=== PATIENT | male | born 1985 | race Two or more races ===

== ENCOUNTER 2017-07-09 06:16 | Inpatient (IN) | payer OTHER ==
[~2017-07-09] VITALS: Ht 170.2 cm; Wt 122.5 kg
[2017-07-09] VITALS (12 sets, daily range): BP systolic 108–144; BP diastolic 60–85
[~2017-07-09 06:16] MED LIST: METFORMIN HCL1000 M1 ORAL; ceFAZolin 2gm/50ml Premix 50 ML IV SCH
[2017-07-09] MEDS ORDERED: Thrombin 5000 units TOPIC ONE (08:40)
[2017-07-09] MEDS ORDERED: Gelfoam Absorbable 1gm powder pkt TOPIC ONE (08:41)
[2017-07-09] MEDS ORDERED: Thrombin 5000 units spray kit TOPIC ONE (08:41)
[2017-07-09] MEDS ORDERED: Bupivacaine w/Epi 0.5% 30ml Vial INJ ONE (08:41)
[2017-07-09] MEDS ORDERED: Bacitracin 50000 Units Vial ONE (08:41)
[2017-07-09] MEDS ORDERED: Propofol 10mg/ml 100ml btl IV ONE (09:00)
[2017-07-09] MEDS ORDERED: Midazolam 2mg/2ml Inj ONE (10:00)
[2017-07-09] MEDS ORDERED: Sterile Water Irrig 1000ml IRRIG ONE (10:00)
[2017-07-09] MEDS ORDERED: Neostigmine 1mg/ml 10ml Inj ONE (10:00)
[2017-07-09] MEDS ORDERED: fentaNYL 100 mcg/2 mL IV ONE (10:00)
[2017-07-09] MEDS ORDERED: Succinylcholine 20mg/ml 10ml vial ONE (10:00)
[2017-07-09] MEDS ORDERED: NS Irrig 1000ml ONE (10:00)
[2017-07-09] MEDS ORDERED: LR 1000ml ONE (10:00)
--- NOTE | 2017-07-09 10:30 | Pre-Procedure Note/Attestation ---
Pre-Procedure Note/Attestation Complete Prior to Procedure Procedure Narrative: L45 Laminectomy and microdiscectomy Indications for Procedure Pre-Operative Diagnosis: L45 stenosis hnp Attestation I attest that I discussed the nature of the procedure; its benefits; risks and complications; and alternatives (and the risks and benefits of such alternatives ), prior to the procedure, with the patient (or the patient's legal international sales representative). I attest that, if there was a reasonable possibility of needing a blood transfusion, the patient (or the patient's legal international sales representative) was given the [facility] standardized written summary, pursuant to the [place] Blood Safety Act ([place] Health and Safety Code # 1645, as amended). I attest that I re-evaluated the patient just prior to the surgery and that there has been no change in the patient's H&P, except as documented below: DELBERT MERCER Jul 09, 2017 10:30
--- NOTE | 2017-07-09 11:41 | Anethesia Preoperative Eval ---
Anesthesia Pre-op PMH/ROS General Date of Evaluation: Jul 09, 2017 Time of Evaluation: 09:57 Anesthesiologist: Bret ASA Score: ASA 2 Mallampati Score Class I : Soft palate, uvula, fauces, pillars visible Class II: Soft palate, uvula, fauces visible Class III: Soft palate, base of uvula visible Class IV: Only hard plate visible Mallampati Classification: Class II Anesthesia History: none Family History: no anesthesia problems Allergies: Coded Allergies: No Known Allergies (Unverified , 07/05/17) Medications: see eMAR Past Medical History Other: obesity, other PMH Narrative: sleep apnea Anesthesia Pre-op Phys. Exam Physician Exam Last Vital Signs Date Time Temp Pulse Resp B/P Pulse Ox O2 Delivery O2 Flow Rate FiO2 07/09/17 07:15 98.2 91 20 139/85 97 Room Air Constitutional: NAD Neurologic: CN 2-12 intact Cardiovascular: RRR Airway Exam Mallampati Score: Class II MO: full ROM: full Teeth: intact Anesthesia Pre-op A/P Risk Assessment & Plan Plan: GA Status Change Before Surgery: No Pre-Antibiotics Given Within 1 Hr of Incision: Yes Gerry Queen M.D. Jul 09, 2017 11:41
--- NOTE | 2017-07-09 11:43 | Immediate Post-Op Evaluation ---
Immediate Post-Op Evalulation Immediate Post-Op Evalulation Date of Evaluation: Jul 09, 2017 Time of Evaluation: 12:30 IV Fluids: 1300 Blood Products: 0 Estimated Blood Loss: 50 Urinary Output: 100 Blood Pressure Systolic: 125 Blood Pressure Diastolic: 83 Pulse Rate: 70 Respiratory Rate: 16 O2 Sat by Pulse Oximetry: 97 Temperature (Fahrenheit): 98 Pain Score (1-10): 0 Nausea: No Vomiting: No Patient Status: awake, reacts, patent, extubated Hydration Status: adequate Given Within 1 Hr of Incision: Yes Gerry Queen M.D. Jul 09, 2017 11:43
[2017-07-09] MEDS ORDERED: Norco 5mg/325mg tab ORAL PRN ×2 (11:45→12:30)
[2017-07-09] MEDS ORDERED: Meperidine 25mg/0.5ml Inj (FOR RIGORS ONLY) IV PRN (11:45)
[2017-07-09] MEDS ORDERED: Metoclopramide 10mg/2ml Inj IVP PRN ×2 (11:45→12:30)
[2017-07-09] MEDS ORDERED: Morphine Sulfate 2mg/ml Inj IVP PRN (11:45)
[2017-07-09] MEDS ORDERED: Midazolam 2mg/2ml Inj IVP PRN (11:45)
[2017-07-09] MEDS ORDERED: fentaNYL 100 mcg/2 mL IV PRN (11:45)
[2017-07-09] MEDS ORDERED: Ketorolac 30mg Inj IV PRN (11:45)
[2017-07-09] MEDS ORDERED: LORazepam Inj 2mg/ml 1ml IV PRN (11:45)
--- NOTE | 2017-07-09 11:45 | 48 Hour Post Anesthesia Eval ---
Post Anesthesia Evaluation Procedure: lumbar foraminotomy Date of Evaluation: Jul 11, 2017 Time of Evaluation: 08:00 Blood Pressure Systolic: 125 0: 78 Pulse Rate: 70 Respiratory Rate: 15 Temperature (Fahrenheit): 98 O2 Sat by Pulse Oximetry: 99 Airway: patent Nausea: No Vomiting: No Pain Intensity: 0 Hydration Status: adequate Mental Status/LOC: patient returned to baseline Follow-up care needed: patient intructions given Gerry Queen M.D. Jul 09, 2017 11:44
--- NOTE | 2017-07-09 12:26 | Brief Operative Note ---
Immediate Post Operative Note Operative Note Pre-op Diagnosis: L45 stenosis hnp Procedure: L45 R hemilaminectomy and microdiscectomy Post-op Diagnosis: same as pre-op Findings: consistent w/pre-op dx studies Surgeon: mendoza Anesthesiologist: thomas Anesthesia: general Specimen: none Complications: none Condition: stable Estimated Blood Loss: minimal Drains: hemovac Implant(s) used?: No DELBERT MERCER Jul 09, 2017 12:26
[2017-07-09] MEDS ORDERED: Milk of Magnesia 30ml Ud ORAL PRN (12:30)
[2017-07-09] MEDS ORDERED: Naloxone 0.4mg/ml Inj IVP PRN (12:30)
[2017-07-09] MEDS ORDERED: Norco 7.5mg/325mg tab ORAL PRN ×2 (12:30)
[2017-07-09] MEDS ORDERED: HYDROmorphone 1mg/ml Carpuject SUBQ PRN (12:30)
[2017-07-09] MEDS: Hydromorphone 0.5mg/0.5ml inj IVP PRN ×2 (13:02→13:37)
[2017-07-09] MEDS: D5 1/2NS 1,000 ML IV SCH (17:36)
[2017-07-09] MEDS: Pericolace tab ORAL SCH (17:39)
[2017-07-09] MEDS: Docusate 100mg cap ORAL SCH (17:39)
[2017-07-09] MEDS: ceFAZolin sod 1 GM in D5W 55 ML IV SCH (17:39)
[2017-07-09] MEDS ORDERED: Chloraseptic Spray 20mL Bottle ORAL PRN (20:00)
[2017-07-09] MEDS ORDERED: HYDROmorphone 1mg/ml Carpuject SUBQ ONE (20:15)
[2017-07-09] MEDS: Cyclobenzaprine 10mg Tab ORAL PRN (21:25)
[2017-07-09] MEDS: Dronabinol 2.5mg Cap ORAL SCH (21:25)
[2017-07-09] MEDS: NovoLOG Insulin Flexpen SUBQ SCH (21:27)
--- NOTE | 2017-07-10 | Operative Note - Dictated ---
DATE OF OPERATION: 07/09/2017 PREOPERATIVE DIAGNOSES: 1. Disk herniation, L4-L5 with right lower extremity radiculopathy. 2. Obesity. POSTOPERATIVE DIAGNOSES: 1. Disk herniation, L4-L5 with right lower extremity radiculopathy. 2. Obesity. PROCEDURE: 1. Hemilaminectomy and microdiskectomy, right side L4-L5 (made markedly more complicated due to the patient's obesity (BMI 43)). 2. Neurolysis L4-L5. 3. Use of operating microscope. 4. Neurodiagnostic monitoring. 5. Use of fluoroscopy for localization purposes. SURGEON: Luca Chavez M.D. DELIVERY MGR: None. Anesthesiologist: Gerry Queen M.D. _01:12 ANESTHESIA TYPE: General endotracheal anesthesia. ESTIMATED BLOOD LOSS: Minimal. FINDINGS: Severe adhesions around the L4-L5 disk and nerve root with calcification of the disk requiring osteotomy and removal of calcified disk fragments. Operation was also markedly complicated due to the patient's obesity. INDICATIONS: The patient is a very pleasant 32-year-old with disk herniation at L4-L5 with radiculopathy right lower extremity. Surgical intervention was discussed as conservative care failed. The patient elected to proceed. Please note, the patient was explained in detail the risks and benefits of surgery to include, but not be limited to, those of bleeding, infection, damage to nerves, vessels, tendons, anesthetic risk, allergic reaction, aspiration, and possibly . The patient understood, wished to proceed. OPERATIVE PROCEDURE IN DETAIL: The patient was taken to the operative suite. After general endotracheal anesthesia was obtained, Sweet catheter was placed. He was turned prone onto the Mark frame. All bony prominences were well padded. The back was then prepped and draped in the usual sterile fashion. The fluoroscopy unit was brought in place and the L4-L5 level was marked out. At this point, the wound was infiltrated with Marcaine with epinephrine. A 3-inch incision was made in the midline and subperiosteal dissection was carried out on his right side. Probe was applied and the L4-L5 level was identified. Operating microscope was brought in place. High-speed drill was utilized to remove the leading edge of the lamina of L4. Ligamentum flavum was then removed in a piecemeal fashion. The nerve root and nerve sac was identified and gently retracted medially. The disk itself was noted to be markedly calcified. The osteotomy was performed through the calcified disk using down pushing curette and mallet to break apart the calcified disk. The disk was removed in a piecemeal fashion. There was noted to be marked adhesions and a neurolysis was required and mobilization of the dural sac off of the calcified and adhesed disk herniation. Multiple passes with pituitary assured removal of the loose disk fragments from within the disk space. Intradiscal irrigation was performed. Meticulous hemostasis was achieved. Neuroforaminal decompression was achieved using standard technique. Probe was placed through the foramen patent foramen. At this point, decision was made to close. Medium-size Hemovac drain was placed deep to the fascia. Fascia was repaired using #1 Vicryl, subcutaneous closure using 2-0 Vicryl, and running 4-0 Monocryl was used. This drain was taped down with Steri-Strips. Dermabond was applied and sterile dressing was applied. Neurodiagnostic monitoring did remain stable throughout the operation. Luca Chavez M.D. DR: Sydney JOB#: [id number] CC: GM
[2017-07-10 00:07] VITALS: BP 127/82
[2017-07-10] MEDS: HYDROmorphone 1mg/ml Carpuject SUBQ PRN ×2 (00:38→19:45)
[2017-07-10] MEDS: D5 1/2NS 1,000 ML IV SCH (01:22)
[2017-07-10] MEDS: ceFAZolin sod 1 GM in D5W 55 ML IV SCH ×2 (01:22→08:24)
[2017-07-10 04:00] VITALS: BP 114/71
[2017-07-10] MEDS: Tylenol #3 tab (300mg/30mg) ORAL PRN ×4 (04:16→16:12)
[2017-07-10] MEDS: NovoLOG Insulin Flexpen SUBQ SCH ×4 (06:00→20:45)
--- NOTE | 2017-07-10 07:15 | Consultation ---
DATE OF CONSULTATION: 07/09/2017 CONSULTING PHYSICIAN: Gerry Vargas M.D. REFERRING PHYSICIAN: Luca Chavez M.D. REASON FOR CONSULTATION: Acute pain consult. HISTORY OF PRESENT ILLNESS: Dear Dr. Luca Chavez, Thank you kindly for consulting me to evaluate and render an opinion as to how to proceed in the management of the patient's acute postoperative lumbar spine pain after lumbar spine decompressive surgery today. The patient is a massively obese 32-year-old gentleman, who I saw at the bedside with his . The patient has a body mass index of 42. He complains of significant postoperative pain after his lumbar spine surgery today. The patient is with multiple medical problems including super-morbid obesity and diabetes, often has difficulties with pain control after lumbar spine surgery. Such was the case with the patient today. I saw the patient at the bedside. We performed a detailed history and physical examination. I discussed the case with yourself, Dr. Chavez along with the nurse RNYoandy, the hospital pharmacist, and yourself. I spent over 75 minutes in consultation with an additional 30 minutes in medical record review. PAST MEDICAL HISTORY: 1. Acute postoperative lumbar spine pain, status post lumbar spine surgery by Dr. Luca Chavez in June 2017. 2. Work-related injury. 3. Morbid obesity. 4. Diabetes. 5. Obstructive sleep apnea with nightly CPAP. PAST SURGICAL HISTORY: 1. Multiple lumbar epidural steroid injections. 2. Dental work. ALLERGIES: No known drug allergies. SOCIAL HISTORY: The patient is accompanied at the bedside by his . The patient smokes cigars occasionally and does admit to using edible marijuana a few times per week for pain control. The patient has used codeine in the past after dental surgery and has used Flexeril with no adverse side effects. FAMILY HISTORY: Diabetes and obesity. REVIEW OF SYSTEMS: Per attending physician. PHYSICAL EXAMINATION: VITAL SIGNS: Age 32. Height 5 feet 8 inches. Weight 270 pounds. Body mass index 42. Afebrile, pulse 97, respirations 21, blood pressure 113/78, and oxygen saturation 99% on supplemental oxygen. HEENT: Nasal CPAP and NI has been placed. No Yarbrough palsy. No Bruno syndrome. CHEST: Barrel chested. No wheezes noted. The patient appears non-toxic. HEART: Regular rate and rhythm. ABDOMEN: Massively obese. Positive pannus. EXTREMITIES: Moving all extremities x4. A 5/5 dorsiflexion and 5/5 plantar flexion, bilateral lower extremities. BACK: Lumbar spine is painful by incision area with Hemovac drain holding suction. NEUROLOGIC: Detailed neurologic exam, straight leg raising deferred to Surgery. LABORATORY AND DIAGNOSTIC TESTING: On 06/24/2017, shows glucose 229, sodium 133, potassium 4.3, chloride 97, bicarbonate 28, BUN 10, creatinine 0.7, and calcium 10.0. and total protein 7.5. Albumin is 4.8. AST is 53, ALT 72, and alkaline phosphatase 79. Total bilirubin is 1.1. CPK is 76. Magnesium is 1.8. Amylase is 23. TSH is normal at 1.1. Hemoglobin A1c is 9, elevated. White count is 6, hematocrit 52, and platelets 170,000. INR is 1.0 and PTT 29. A 12-lead EKG shows normal sinus rhythm, ventricular rate 79, no evidence for acute cardiac ischemia. Preoperative chest x-ray of 06/24/2017 shows no radiographic evidence of acute cardiopulmonary disease and pneumonia. Pulmonary function testing shows moderately severe restrictive lung disease with an FEV1 of 83%. IMPRESSION: 1. Acute postoperative lumbar spine pain, status post lumbar spine surgery by Dr. Luca Chavez in June 2017. 2. Work-related injury. 3. Morbid obesity. 4. Diabetes. 5. Obstructive sleep apnea with nightly CPAP. TREATMENT AND RECOMMENDATIONS: I spoke with the hospital pharmacist to begin this patient on Marinol 2.5 mg q.12 hours for baseline analgesia. Because the patient does admit to using edible marijuana at home Marinol should be well tolerated to help reduce his opioid requirement. The patient has tolerated subcutaneous Dilaudid. Now, we will continue the dosing 1 mg every three hours p.r.n. for severe breakthrough pain. I will try to transition the patient onto oral medications including Tylenol with Codeine along with Flexeril to wean off the parenteral narcotics. I have ordered Flexeril 10 mg orally every eight hours p.r.n. for muscle spasm. I will empirically place this morbidly obese patient on Protonix for GI ulcer prophylaxis along with p.r.n. dose of Mylanta 30 mL q.6 h. p.r.n. for any gastroesophageal reflux disease symptom exacerbation. I have ordered Zofran 4 mg intravenously p.r.n. for nausea and vomiting. I have ordered Benadryl 20 mg orally every six hours p.r.n. for itching symptoms. I have asked the nurse to place Chloraseptic spray at the bedside for any sore throat complaint and clonidine 0.1 mg has been ordered p.r.n. for any systolic blood pressure greater than 160 mmHg. I have streamlined the patient's medication list to reduce the risk of medication administration errors. The patient will start with physical therapy training in the morning to help expedite his hospital discharge. The Sweet catheter was all removed and the patient is voiding urine without difficulty. We will follow how the patient advances with his diet as well as how the drainage from the indwelling lumbar spine drain catheter proceeds. I have ordered incentive spirometry to encourage good pulmonary toilet patient. I will defer deep vein thrombosis prophylaxis to the surgeon. A comprehensive review of the medical record was performed. Records reviewed from multiple reports from today's date of surgery at [facility], 07/09/2017 including anesthesia record, pre and postanesthesia evaluation record, and PACU records, PACU orders, initial nursing assessment, and 24-hour medical/surgical flow sheet, guidelines for prophylactic antibiotics and guidelines for deep vein thrombosis prophylaxis, postoperative spine surgery, discussed by Dr. Chavez, preoperative diagnostic testing by Dr. Andrew Becerra on 06/24/2017 along with laboratory studies, 12-lead EKG, and chest x-ray. Gerry Vargas M.D. DR: Clint JOB#: [id number] CC:
[2017-07-10 08:00] VITALS: BP 121/80
--- NOTE | 2017-07-10 08:05 | Orthopedic Spine Progress Note ---
Ortho Spine - Progress Note Subjective Symptoms: c/o post-op back pain, improved - as compared to pre-op Objective Vital Signs: Last 24 Hour Vital Signs Date Time Temp Pulse Resp B/P Pulse Ox O2 Delivery O2 Flow Rate FiO2 07/10/17 04:00 99.3 110 20 114/71 93 Room Air 07/10/17 00:07 97.2 98 18 127/82 92 Room Air 07/09/17 20:04 97.8 89 19 117/72 92 Room Air 07/09/17 15:57 97.9 97 21 113/78 99 Nasal Cannula 2.0 07/09/17 15:25 97.9 96 21 109/64 99 Nasal Cannula 2.0 07/09/17 14:02 98.0 91 20 108/66 95 Nasal Cannula 3.0 07/09/17 14:01 98.2 07/09/17 13:37 96 20 114/77 100 Nasal Cannula 3.0 07/09/17 13:15 83 20 119/65 100 Nasal Cannula 3.0 07/09/17 13:02 81 20 128/78 100 Nasal Cannula 3.0 07/09/17 12:52 81 20 124/73 100 Nasal Cannula 3.0 07/09/17 12:47 83 20 116/72 100 Nasal Cannula 3.0 07/09/17 12:42 81 20 133/80 100 Simple Mask 8.0 07/09/17 12:37 98.2 88 20 144/60 100 Simple Mask 8.0 07/09/17 11:44 70 15 99 07/09/17 11:43 70 16 97 I&O: Intake and Output 07/09/17 07/10/17 19:00 07:00 Intake Total 2340 ml 240 ml Output Total 675 ml 560 ml Balance 1665 ml -320 ml Intake Oral 340 ml 240 ml IV Total 2000 ml Output Urine Total 625 ml 550 ml Drainage Total 10 ml Estimated Blood Loss 50 ml # Voids 1 3 Wound: clean, intact Drains: hemovac Neuro Status: normal - except numbness r foot-- unchanged Assessment Procedure Performed: L45 R hemilaminectomy and microdiscectomy Plan Plan: PT, pain management, d/c drain, discharge plan DELBERT MERCER Jul 10, 2017 08:05
[2017-07-10] MEDS: Docusate 100mg cap ORAL SCH ×2 (08:22→17:38)
[2017-07-10] MEDS: Pericolace tab ORAL SCH ×2 (08:22→17:38)
[2017-07-10] MEDS: metFORMIN 500mg tab ORAL SCH ×2 (08:22→17:38)
[2017-07-10] MEDS: Dronabinol 2.5mg Cap ORAL SCH ×2 (08:23→21:00)
[2017-07-10] MEDS: Cyclobenzaprine 10mg Tab ORAL PRN (10:49)
[2017-07-10 12:00] VITALS: BP 125/77
[2017-07-10 16:00] VITALS: BP 120/68
[2017-07-10 20:00] VITALS: BP_SYST 124; BP_SYST 135; BP_DIAS 69; BP_DIAS 83
--- NOTE | 2017-07-10 22:00 | Progress Note ---
DATE: 07/10/2017 ACUTE PAIN MANAGEMENT PHYSICIAN PROGRESS NOTE MEDICATIONS: Medication administration record reviewed. Medications include Tylenol, Tylenol No. 3 with Codeine, Mylanta, Catapres, Flexeril, Benadryl, Colace, Marinol, Dilaudid, diabetic medications, milk of magnesia, Glucophage, Zofran, Protonix, Chloraseptic, and Grace-Colace LABORATORY STUDIES: No interval laboratory studies. OBJECTIVE: VITAL SIGNS: Afebrile, pulse 97, respirations 20, blood pressure 125/77, and oxygen saturation 100% on room air. I saw the patient at the bedside with the nurse RN, Korin and the patient's . I discussed the case with the surgeon, Dr. Chavez, who removed the indwelling lumbar spine drain catheter earlier this morning after minimal drainage overnight. The patient did have a Sweet catheter removed and has been voiding urine well. He has been advancing his diet without any nausea symptoms. Overnight, the patient did require considerable dosing with alternating analgesics including Flexeril, Tylenol No. 3 with codeine, subcutaneous Dilaudid in combination with the scheduled Marinol. Over the daytime today, his narcotic requirements have decreased. The patient has been able to sleep with his nasal CPAP device. I asked the patient's to have a family member drop-off the prescription at a local pharmacy, to expedite dispensing of the medication from the Worker's Compensation [employer] Authorization and outpatient pharmacy. The current analgesic regimen seems adequate. I will continue him on his scheduled Marinol and his current as needed analgesic regimen at this time. I did encourage continued use of incentive spirometer along with active ambulation for DVT prophylaxis. I will defer discharge plan at this time to the surgeon, Dr. Chavez. Gerry Vargas M.D. DR: Temi JOB#: [id number] CC:
[2017-07-11 00:15] VITALS: BP 130/70
[2017-07-11] MEDS: Cyclobenzaprine 10mg Tab ORAL PRN (01:12)
[2017-07-11 04:36] VITALS: BP 138/80
[2017-07-11] MEDS: Tylenol #3 tab (300mg/30mg) ORAL PRN ×2 (06:45→12:26)
[2017-07-11] MEDS: NovoLOG Insulin Flexpen SUBQ SCH ×2 (06:46→11:30)
[2017-07-11] MEDS: HYDROmorphone 1mg/ml Carpuject SUBQ PRN (07:37)
[2017-07-11] MEDS: Docusate 100mg cap ORAL SCH (07:39)
[2017-07-11] MEDS: metFORMIN 500mg tab ORAL SCH (07:39)
[2017-07-11] MEDS: Dronabinol 2.5mg Cap ORAL SCH (07:39)
[2017-07-11] MEDS: Pericolace tab ORAL SCH (07:39)
[2017-07-11 08:21] VITALS: BP 135/86
--- NOTE | 2017-07-11 08:34 | Orthopedic Spine Progress Note ---
Ortho Spine - Progress Note Subjective Symptoms: c/o post-op back pain, improved - as compared to pre-op Objective Vital Signs: Last 24 Hour Vital Signs Date Time Temp Pulse Resp B/P Pulse Ox O2 Delivery O2 Flow Rate FiO2 07/11/17 08:21 99.7 102 21 135/86 95 Room Air 07/11/17 08:07 97.2 07/11/17 07:44 97.2 07/11/17 04:36 97.2 90 18 138/80 96 Room Air 07/11/17 00:15 98.4 100 18 130/70 95 Room Air 07/10/17 20:00 99.5 110 20 135/83 94 Room Air 07/10/17 16:00 98.2 95 20 120/68 96 Room Air 07/10/17 12:00 97.9 97 20 125/77 100 Room Air 07/10/17 11:48 99.3 I&O: Intake and Output 07/10/17 07/11/17 19:00 07:00 Intake Total 840 ml 240 ml Balance 840 ml 240 ml Intake Oral 840 ml 240 ml # Voids 1 2 Wound: clean, intact Neuro Status: stable Assessment Procedure Performed: L45 R hemilaminectomy and microdiscectomy Plan Plan: PT, pain management, discharge plan, discharge to home DELBERT MERCER Jul 11, 2017 08:34
[2017-07-11] MEDS ORDERED: CYCLOBENZAPRINE10 MG ORAL (09:39)
[2017-07-11] MEDS ORDERED: ACETAMINOPHEN-1 EAC1 ORAL (09:39)
[2017-07-11] MEDS ORDERED: PERCOCET 10-321 EAC1 PO (12:21)
[2017-07-11] MEDS ORDERED: D5 1/2NS 1000ml IV ONE (12:59)
--- NOTE | 2017-07-11 18:47 | Progress Note ---
DATE: 07/11/2017 ACUTE PAIN MANAGEMENT PHYSICIAN PROGRESS NOTE MEDICATIONS: Medication administration record reviewed. Medications include Tylenol, Tylenol No. 3 with Codeine, Mylanta, Catapres, Flexeril, Benadryl, Colace, Marinol, Dilaudid, diabetic medications, milk of magnesia, Zofran, Protonix, Chloraseptic, and Grace-Colace. LABORATORY STUDIES: No interval laboratory studies. OBJECTIVE: VITAL SIGNS: Temperature is 97.2 degrees, pulse 102, respirations 21, blood pressure 135/86, and oxygen saturation 95% on room air. I saw the patient at bedside with his after discussion with the nurse RN, Korin and the surgeon, Dr. Chavez. The was able to cotton picking machine operator a prescription for Tylenol No.3 with Codeine and Flexeril at the outpatient pharmacy. The patient has continued to request frequent doses of the p.r.n. medications including Dilaudid injections come along with getting scheduled Marinol dosing. The patient has been using Flexeril and Tylenol No. 3 with Codeine here in the hospital, but wondered if he might need something stronger. I did leave a prescription for 40 tablets of Percocet 10/325 for severe pain episodes. I also did job counselor the patient to use the edible marijuana that he already has an ample supply of at home to bridge any pain exacerbation. I also did job counselor the patient and his to wait at least 60 minutes between doses of any sedating or pain medications including the Flexeril, Tylenol No. 3 with Codeine, Percocet, and marijuana to avoid over-sedation. The patient does have sleep apnea, already uses a CPAP device at home putting him at risk for obstructive sleep apnea and respiratory depressive symptoms. The patient has had no issues with breathing difficulties here in the hospital so far. The patient has been ambulating. He has been tolerating his diet. He denies any shortness of breath or chest pain. I agree with Dr. Chavez for discharge home at this time. Gerry Vargas M.D. DR: ALKA JOB#: [id number] CC:
--- NOTE | 2017-07-12 16:06 | Discharge Summary ---
Discharge Summary Hospital Course Date of Admission Jul 09, 2017 at 06:16 Date of Discharge Jul 11, 2017 at 13:00 Admitting Diagnosis HPI Barney Temple is a 32 year old male who was admitted on Jul 09, 2017 at 06:16 for Lumbar Spine Muscle Sprain Hospital Course [id number] Discharge Discharge Disposition Patient was discharged to Home (01) Discharge Diagnoses: Fabiola Dixon NP Jul 12, 2017 16:06
--- NOTE | 2017-07-12 22:45 | Discharge Summary 2 SIG ---
DATE OF ADMISSION: 07/09/2017 DATE OF DISCHARGE: 07/11/2017 SCREEN PRINTING PRESS OPERATOR: Gerry Vargas M.D. BRIEF HOSPITAL COURSE: The patient is a 32-year-old gentleman, who has a BMI of 42 with disk herniation at L4-L5 with radiculopathy to the right lower extremity and have failed conservative care. He was admitted on 07/09/2017 and underwent hemilaminectomy on L4-L5. He tolerated procedure well postoperatively. He was admitted for pain management and was seen by the facilities painter and was given Marinol 2.5 mg q.12 hours. Dilaudid for breakthrough pain. He was given muscle relaxants and stool softeners and was encouraged to use incentive spirometry. He was seen by physical therapy and occupational therapy. Postoperatively symptoms improved. He was discharged home. FINAL DIAGNOSES: 1. Disc herniation at L4-L5 with Right lower extremity radiculopathy, status post hemilaminectomy and microdiskectomy on the right L4-L5. 3. Obesity. DISPOSITION: The patient was discharged home. Follow up as outpatient. Luca Chavez M.D. I have been assigned to dictate discharge summary on this account and I was not involved in the patient's management. Fabiola Dixon N.P. DR: TANYA JOB#: [id number] CC: GM
== END 2017-07-11 13:00 | disposition home or self-care (01) | DRG 519 ==
LOC: SDSOVERFLO 06:16 → 3E 14:35
PROC: 0ST20ZZ Resection of Lumbar Vertebral Disc, Open Approach (ICD-10-PCS; principal; 2017-07-09 09:00)
PROC: 4A11X4G Monitoring of Peripheral Nervous Electrical Activity, Intraoperative, External Approach (ICD-10-PCS; principal; 2017-07-09 09:00)
DX: M51.16 Intervertebral disc disorders with radiculopathy, lumbar region (principal); Z68.41 Body mass index [BMI] 40.0-44.9, adult; E66.01 Morbid (severe) obesity due to excess calories; E11.9 Type 2 diabetes mellitus without complications; F17.210 Nicotine dependence, cigarettes, uncomplicated; G47.33 Obstructive sleep apnea (adult) (pediatric); Z99.89 Dependence on other enabling machines and devices
CPT/HCPCS: 36415; 72020; 76000; 82962; 86850; 86900; 86901; 87081; 94003; 94150; C9399; J1815; J2250; J2405; J2710